=== PATIENT | female | born 1955 | race Caucasian/White ===

== ENCOUNTER → 2017-05-30 | Outpatient (CLI) | payer MEDICARE, OTHER ==
[~2017-05-30] MED LIST: ADDERALL20 M1 DOB; ADVICOR; ALBUTEROL17 GM INH; ALPRAZOLAM PO; CIPRO PO; CLOBETASOL 0.0560 GM TOP; COMBIVENT INH14.7 GM INH; COUGH MED; EFFEXOR XR PO; HYDROCODONE-APA1 T33; HYDROCODONE-APA1 T50 PO; IBUPROFEN PO; LEVAQUIN PO; LEXAPRO PO; LEXAPRO20 MG PO; LORTAB 10/500 T1 TAB PO; LORTAB 7.5-5001 TAB PO; LUNESTA PO; METRONIDAZOLE PO; NICOTINE TRANSD14 MG EXT; NORCO 7.5/325 T1 TAB PO; PAXIL CR; PHENERGAN PO; PREDNISONE PO; PREMPRO; PRILOSEC PO; PROTONIX PO; ROBITUSSIN COU118 ML PO; SENNA PO; SENNA S TABLET1 TAB PO; SYMBICORT INH; TRAZODONE HCL100 MG PO; TRAZODONE PO; VICODIN 5/500 T1 TAB PO; XANAX2 MG PO; Z-PACK; ZITHROMAX PO
[2017-05-30 16:50] LABS: HEMATOCRIT 45.4 % (35.0-45.0); HEMOGLOBIN 14.9 gm/dL (12.0-16.0); MEAN CELL VOLUME 93.7 FL (83-96); MEAN CORPUSCULAR HEMOGLOBIN 30.6 PG (28-34); MEAN CORPUSCULAR HGB CONC 32.7 g/dL (30-36); MEAN PLATELET VOLUME 8.8 FL (6.5-11.5); RED BLOOD COUNT 4.85 X10e (3.90-5.30); RED CELL DISTRIBUTION WIDTH 14.2 % (11.0-15.5); WHITE BLOOD COUNT 11.2 X10e3 (4.0-10.5)
[2017-05-30 17:29] LABS: ALBUMIN SERUM 4.1 g/dL (3.5-5.0); BILIRUBIN,TOTAL 1.2 mg/dL (0.2-2.0); BUN/CREATININE RATIO 16.66; CALCIUM SERUM 9.1 mg/dL (8.4-10.2); CREATININE SERUM 0.6 mg/dL (0.6-1.4); GLOM FILT RATE Estimated 97.7 mL/min (>60); POTASSIUM 4.3 mmol/L (3.5-5.1); PROTEIN TOTAL SERUM 7.1 g/dL (6.0-8.3)
[2017-05-30 17:30] LABS: URINE APPEARANCE CLEAR; URINE BILIRUBIN NEG (NEG); URINE BLOOD NEG (NEG); URINE COLOR YELLOW; URINE GLUCOSE NEG (NEG); URINE KETONE NEG (NEG); URINE LEUKOCYTE ESTERASE TRACE (NEG); URINE NITRATE NEG (NEG); URINE PROTEIN NEG (NEG); URINE SPECIFIC GRAVITY 1.015 (1.003-1.035)
[2017-05-30 17:33] LABS: URINE BACTERIA AUWI NEG (NEGATIVE); URINE SQUAMOUS EPITHELIAL CELL OCC /[HPF]; UWBCS1 AUWI 0-2 (0-5)
[2017-05-30 17:55] LABS: URINE SOURCE CLEAN CATCH
== END | disposition home or self-care (01) ==
LOC: CLAB 16:28
PROVIDERS: Specialist
DX: R10.9 Unspecified abdominal pain (principal)
CPT/HCPCS: 36415; 80053; 81003; 82150; 83690; 85027